=== PATIENT | male | born 1935 | race Caucasian/White ===

== ENCOUNTER 2020-01-16 14:20 | Emergency (ER) | payer MEDICARE, BC ==
[2020-01-16 15:06] VITALS: BP 166/90; PULSE 63
--- NOTE | 2020-01-16 15:22 | EDM.PDOC ---
ED HPI GENERAL MEDICAL PROBLEM - General Chief Complaint: Genitourinary Problem Stated Complaint: DYSURIA/URGENCY Time Seen by Provider: 01/16/20 15:00 Source of Information: Reports: Patient History Limitations: Reports: No Limitations - History of Present Illness INITIAL COMMENTS - FREE TEXT/NARRATIVE: 84 YO WM PRESENTS TO ER COMPLAINING OF DYSURIA X 2 WEEKS. PT REPORTS HE HAS HISTORY OF URINARY INCONTINENCE AND HAS NOTICED AFTER HE URINATES HE HAS BEEN HAVING BURNING PAIN AND DISCOMFORT. PT DENIES BACK PAIN, ABDOMINAL PAIN, FEVER/CHILLS, OR NAUSEA/VOMITING. PT REPORTS HE HAS BEEN WEARING DEPENDS SINCE HE HAS BEEN HAVING FREQUENT LEAKAGE. PT DENIES ANY HISTORY OF UTI OR BPH OR URINARY RETENTION IN THE PAST. Duration: Week(s): (2) Location: Reports: Abdomen Quality: Reports: Ache Severity: Mild Improves with: Reports: None Worsens with: Reports: Other (URINATION) Associated Symptoms: Reports: No Other Symptoms. Denies: Confusion, Fever/Chills, Malaise, Nausea/Vomiting, Rash, Weakness - Related Data Allergies Allergy/AdvReac Type Severity Reaction Status Date / Time benazepril HCl [From Lotrel] Allergy Cannot Verified 01/16/20 14:33 Remember cephalexin Allergy Cannot Verified 01/16/20 14:33 Remember influenza virus vaccine, Allergy Cannot Verified 01/16/20 14:33 specific Remember [influenza virus vacc,specific] Home Meds: Home Meds Carbidopa/Levodopa [Sinemet CR 50-200] 1 tab PO BID 09/08/15 [History] Losartan Potassium 100 mg PO DAILY 09/08/15 [History] Aspirin 325 mg PO DAILY 01/16/20 [History] Ciprofloxacin HCl [Cipro] 500 mg PO BID #20 tablet 01/16/20 [Rx] Cyanocobalamin (Vitamin B12) [Vitamin B12] 1,000 mcg PO DAILY 01/16/20 [History] Digoxin 125 mcg PO DAILY 01/16/20 [History] Lutein/Minerals/Vit A,C & E [Ocuvite] 1 tab PO DAILY 01/16/20 [History] Phenazopyridine HCl [Pyridium] 100 mg PO TID PRN #6 tablet 01/16/20 [Rx] carvediloL [Carvedilol] 25 mg PO BID 01/16/20 [History] Past Medical History HEENT History: Reports: Hard of Hearing, Impaired Vision Cardiovascular History: Reports: Arrhythmia, Heart Failure, Hypertension, SOB on Exertion Respiratory History: Reports: SOB Genitourinary History: Reports: Other (See Below) Other Genitourinary History: unknown Neurological History: Reports: Parkinson's Oncologic (Cancer) History: Reports: Other (See Below) Other Oncologic History: skin cancer to face Dermatologic History: Reports: Other (See Below) Other Dermatologic History: dry skin - Infectious Disease History Infectious Disease History: Reports: Chicken Pox - Past Surgical History HEENT Surgical History: Reports: None Other Cardiovascular Surgeries/Procedures: cardiac ablation Social & Family History - Family History Cardiac: Reports: Heart Failure - Living Situation & Occupation Living situation: Reports: Occupation: Retired ED ROS GENERAL - Review of Systems Review Of Systems: See Below Constitutional: Reports: No Symptoms HEENT: Reports: No Symptoms Respiratory: Reports: No Symptoms Cardiovascular: Reports: No Symptoms Endocrine: Reports: No Symptoms GI/Abdominal: Reports: No Symptoms : Reports: Dysuria, Urgency Musculoskeletal: Reports: No Symptoms Skin: Reports: No Symptoms Neurological: Reports: No Symptoms Psychiatric: Reports: No Symptoms Hematologic/Lymphatic: Reports: No Symptoms Immunologic: Reports: No Symptoms ED EXAM, RENAL/ - Physical Exam Exam: See Below Exam Limited By: No Limitations General Appearance: Alert, WD/WN, No Apparent Distress Head: Atraumatic, Normocephalic Neck: Normal Inspection, Supple, Non-Tender, Full Range of Motion Respiratory/Chest: No Respiratory Distress, Lungs Clear, Normal Breath Sounds, No Accessory Muscle Use, Chest Non-Tender Cardiovascular: Normal Peripheral Pulses, Regular Rate, Rhythm, No Edema, No Gallop, No JVD, No Murmur, No Rub GI/Abdominal: Normal Bowel Sounds, Soft, Non-Tender, No Organomegaly, No Distention, No Abnormal Bruit, No Mass Back Exam: Normal Inspection, Full Range of Motion, NT Extremities: Normal Inspection, Normal Range of Motion, Non-Tender, Normal Capillary Refill, No Pedal Edema Course - Vital Signs Last Recorded V/S: Last Vital Signs Temp 37.1 C 01/16/20 14:25 Pulse 63 01/16/20 14:25 Resp 16 01/16/20 14:25 BP 166/90 H 01/16/20 14:25 Pulse Ox 96 01/16/20 14:25 - Orders/Labs/Meds Orders: Active Orders 24 hr Category Date Time Status Bladder Scan [RC] ASDIRECTED Care 01/16/20 15:14 Ordered UA RFX CHARY AND CULT IF INDIC [URIN] Stat Lab 01/16/20 15:01 Ordered Labs: Laboratory Tests 01/16/20 Range/Units 15:10 Urine Color Dark yellow H (YELLOW) Urine Appearance Turbid H (CLEAR) Urine pH 6.0 (5.0-9.0) Ur Specific [place] >= 1.030 (1.005-1.030) Urine Protein >=300 H (NEGATIVE) mg/dL Urine Glucose (UA) Negative (NEGATIVE) mg/dL Urine Ketones Negative (NEGATIVE) mg/dL Urine Occult Blood Large H (NEGATIVE) Urine Nitrite Positive H (NEGATIVE) Urine Bilirubin Negative (NEGATIVE) Urine Urobilinogen 1.0 (0.2-1.0) E.U./dL Ur Leukocyte Esterase Trace H (NEGATIVE) - Radiology Interpretation Free Text/Narrative:: BLADDER SCAN- LESS THAN 200CC Departure - Departure Time of Disposition: 15:29 Disposition: Home, Self-Care 01 Condition: Good Clinical Impression: UTI, Urinary tract infectious disease - Discharge Information Prescriptions: Ciprofloxacin HCl [Cipro] 500 mg PO BID #20 tablet Phenazopyridine HCl [Pyridium] 100 mg PO TID PRN #6 tablet PRN Reason: Pain Instructions: Urinary Tract Infection, Adult, [id number] Referrals: Yoselyn Dimas MD [Primary Care Provider] - Forms: ED Department Discharge Additional Instructions: 1. DISCHARGE HOME 2. CIPRO 500MG TWICE/DAY X 10 DAYS 3. PYRIDIUM 100MG EVERY 8 HOURS NEEDED FOR PAIN #6 4. FOLLOW UP WITH PCP FOR FURTHER EVALUATION AND TREATMENT/URINE CULTURE RESULTS 5. RETURN TO ER FOR WORSENING SYMPTOMS Sepsis Event Note (ED) - Evaluation Sepsis Screening Result: No Definite Risk - Focused Exam Vital Signs: Vital Signs Temp Pulse Resp BP Pulse Ox 01/16/20 14:25 37.1 C 63 16 166/90 H 96 - My Orders Last 24 Hours: My Active Orders 01/16/20 15:01 UA RFX CHARY AND CULT IF INDIC [URIN] Stat 01/16/20 15:14 Bladder Scan [RC] ASDIRECTED - Assessment/Plan Last 24 Hours: My Active Orders 01/16/20 15:01 UA RFX CHARY AND CULT IF INDIC [URIN] Stat 01/16/20 15:14 Bladder Scan [RC] ASDIRECTED Assessment:: 1. URINARY TRACT INFECTION Plan: 1. DISCHARGE HOME 2. CIPRO 500MG TWICE/DAY X 10 DAYS 3. PYRIDIUM 100MG EVERY 8 HOURS NEEDED FOR PAIN #6 4. FOLLOW UP WITH PCP FOR FURTHER EVALUATION AND TREATMENT/URINE CULTURE RESULTS 5. RETURN TO ER FOR WORSENING SYMPTOMS
== END 2020-01-16 15:50 | disposition home or self-care (01) ==
LOC: KA.ED 14:20
DX: N39.0 Urinary tract infection, site not specified (principal); I11.0 Hypertensive heart disease with heart failure; I50.9 Heart failure, unspecified; G20 Parkinson's disease; Z88.1 Allergy status to other antibiotic agents; Z88.5 Allergy status to narcotic agent; Z88.7 Allergy status to serum and vaccine; Z79.899 Other long term (current) drug therapy
CPT/HCPCS: 51798; 81001; 87086; 99283

== ENCOUNTER 2021-08-04 07:35 | Emergency (ER) | payer MEDICARE, BC ==
[2021-08-04 10:20] VITALS: BP 120/75; PULSE 88
== END 2021-08-04 11:00 | disposition home or self-care (01) ==
LOC: KA.ED 07:35
DX: T83.038A Leakage of other urinary catheter, initial encounter (principal); I48.91 Unspecified atrial fibrillation; I11.0 Hypertensive heart disease with heart failure; I50.9 Heart failure, unspecified; Z95.0 Presence of cardiac pacemaker; Z88.7 Allergy status to serum and vaccine; Z88.1 Allergy status to other antibiotic agents; Z88.8 Allergy status to other drugs, medicaments and biological substances; Z79.899 Other long term (current) drug therapy
CPT/HCPCS: 99283; 99284

== ENCOUNTER 2021-08-11 15:55 | Emergency (ER) | payer MEDICARE, BC ==
[2021-08-11] MEDS ORDERED: Sodium Chloride 0.9% 1,000 ML IV ONE (17:43)
[2021-08-11] MEDS ORDERED: Iopamidol 755 Mg/ML 75 ML Bottle IVPUSH ONE (18:51)
[2021-08-11] MEDS ORDERED: Sodium Chloride 0.9% 50 ML IV SCH (19:00)
[2021-08-11] MEDS ORDERED: Sodium Chloride 0.9% 1,000 ML ONE (19:42)
[2021-08-11 23:02] VITALS: BP 124/83; PULSE 96
== END 2021-08-11 20:15 ==
LOC: KA.ED 15:55
DX: N30.11 Interstitial cystitis (chronic) with hematuria (principal); E86.0 Dehydration; R33.9 Retention of urine, unspecified; I11.0 Hypertensive heart disease with heart failure; I50.9 Heart failure, unspecified; I48.91 Unspecified atrial fibrillation; Z95.0 Presence of cardiac pacemaker; Z88.8 Allergy status to other drugs, medicaments and biological substances; Z88.1 Allergy status to other antibiotic agents; Z88.7 Allergy status to serum and vaccine; Z79.01 Long term (current) use of anticoagulants; Z79.02 Long term (current) use of antithrombotics/antiplatelets; Z79.899 Other long term (current) drug therapy
CPT/HCPCS: 36415; 51702; 74177; 81001; 85025; 99284; J7030; Q9967; 80048; 87086; 87088

== ENCOUNTER 2021-11-24 14:01 | Emergency (ER) | payer MEDICARE, BC ==
[2021-11-24] MEDS ORDERED: Acetaminophen 500 MG Tab ONE (14:21)
[2021-11-24] MEDS ORDERED: Sodium Chloride 0.9% 10 ML Syringe FLUSH PRN (14:22)
[2021-11-24] MEDS ORDERED: Sodium Chloride 0.9% 1,000 ML ONE (14:22)
[2021-11-24] MEDS ORDERED: Sodium Chloride 0.9% 1,000 ML IV ONE (14:22)
[2021-11-24] MEDS ORDERED: Acetaminophen 500 MG Tab PO ONE (14:30)
[2021-11-24 14:48] LABS: ANION GAP 12.4 mmol/L (5-15); CHLORIDE,CL 99 mmol/L (98-107); SODIUM,NA 134 mmol/L (136-145)
[2021-11-24 14:51] LABS: ESTIMATED GFR 65 mL/min (>=60)
[2021-11-24] MEDS ORDERED: Levofloxacin/Dextrose 5%-Water 750 MG in Premix Bag 1 BAG IV ONE (15:11)
[2021-11-24 16:46] VITALS: BP 95/60; PULSE 85
== END 2021-11-24 17:05 ==
LOC: KA.ED 14:01
DX: N39.0 Urinary tract infection, site not specified (principal); I48.91 Unspecified atrial fibrillation; I11.0 Hypertensive heart disease with heart failure; I50.9 Heart failure, unspecified; Z95.0 Presence of cardiac pacemaker; Z88.7 Allergy status to serum and vaccine; Z88.1 Allergy status to other antibiotic agents; Z88.8 Allergy status to other drugs, medicaments and biological substances; Z79.01 Long term (current) use of anticoagulants; Z79.02 Long term (current) use of antithrombotics/antiplatelets; Z79.899 Other long term (current) drug therapy; Z20.822 Contact with and (suspected) exposure to COVID-19
CPT/HCPCS: 36415; 71045; 80053; 81001; 83605; 85025; 87040; 87086; 87088; 93010; 96365; 96366; 99284; 99285-25; A9270-GY; J1956; J3490; J7030; U0002

== ENCOUNTER 2022-03-16 13:50 | Emergency (ER) | payer MEDICARE, BC ==
[2022-03-16] MEDS ORDERED: Sodium Chloride 0.9% 10 ML Syringe FLUSH PRN (14:28)
[2022-03-16] MEDS ORDERED: Sodium Chloride 0.9% 500 ML IV SCH (14:30)
[2022-03-16] MEDS ORDERED: Sodium Chloride 0.9% 1,000 ML IV ONE (14:40)
[2022-03-16 14:57] LABS: ANION GAP 9.8 mmol/L (5-15)
[2022-03-16] MEDS ORDERED: Ciprofloxacin 500 MG Tab PO ONE (15:30)
== END 2022-03-16 16:00 | disposition home or self-care (01) ==
LOC: KA.ED 13:50
DX: T83.511A Infection and inflammatory reaction due to indwelling urethral catheter, initial encounter (principal); I11.0 Hypertensive heart disease with heart failure; I50.9 Heart failure, unspecified; Z88.8 Allergy status to other drugs, medicaments and biological substances; Z88.1 Allergy status to other antibiotic agents; Z88.7 Allergy status to serum and vaccine; Z79.899 Other long term (current) drug therapy; Z79.01 Long term (current) use of anticoagulants
CPT/HCPCS: 36415; 80053; 81001; 83605; 85025; 99284; A9270-GY; J7030

== ENCOUNTER 2022-09-01 15:20 | Emergency (ER) | payer MEDICARE, BC ==
[2022-09-01] MEDS ORDERED: Lidocaine 2% 5 ML SDV INJECT ONE (15:28)
== END 2022-09-01 16:50 | disposition home or self-care (01) ==
LOC: KA.ED 15:20
DX: S61.213A Laceration without foreign body of left middle finger without damage to nail, initial encounter (principal); I48.91 Unspecified atrial fibrillation; I11.0 Hypertensive heart disease with heart failure; I50.9 Heart failure, unspecified; Z95.0 Presence of cardiac pacemaker; Z88.7 Allergy status to serum and vaccine; Z88.1 Allergy status to other antibiotic agents; Z88.8 Allergy status to other drugs, medicaments and biological substances; Z79.01 Long term (current) use of anticoagulants; Z79.02 Long term (current) use of antithrombotics/antiplatelets; Z79.899 Other long term (current) drug therapy; W26.8XXA Contact with other sharp object(s), not elsewhere classified, initial encounter; Y92.000 Kitchen of unspecified non-institutional (private) residence as the place of occurrence of the external cause
CPT/HCPCS: 12002; 99282; 99283; J3490